=== PATIENT | female | born 1990 | race Caucasian/White ===

== ENCOUNTER 2023-05-19 08:52 | Outpatient (REF) | payer OTHER, SELFPAY ==
[2023-05-23 14:13] LABS: Age Gdln ACOG Testing Note (.); HPV Aptima Negative (Negative); IGP, Aptima HPV, rfx 16/18,45 Note (.)
== END 2023-05-19 11:00 | disposition home or self-care (01) ==
LOC: LAB 08:52
PROVIDERS: PCP Internal Medicine; Visit Provider Physician Assistant
DX: Z12.4 Encounter for screening for malignant neoplasm of cervix (principal)
CPT/HCPCS: 87624; G0145

== ENCOUNTER 2024-06-01 19:07 | Outpatient (REF) | payer OTHER, SELFPAY ==
[2024-06-06 00:07] LABS: Age Gdln ACOG Testing Note (.); HPV Aptima Negative (Negative); IGP, Aptima HPV, rfx 16/18,45 Note (.)
== END 2024-06-01 19:08 | disposition home or self-care (01) ==
LOC: LAB 19:07
PROVIDERS: PCP Internal Medicine; Visit Provider Obstetrics & Gynecology
DX: Z01.419 Encounter for gynecological examination (general) (routine) without abnormal findings (principal)
CPT/HCPCS: 87624; 88175

== ENCOUNTER 2025-06-12 20:15 | Outpatient (REF) | payer OTHER, SELFPAY ==
--- OUTSIDE RECORDS SUMMARY | 2025-06-12 16:00 | XMS_ITS | Encounter Summary ---
Author Organization [facility] Address [address] [place] [address] Care Team Providers Care Dental Surgery Doctor Name Role Phone Michael Hickman MD Primary Care Provider Reason for Visit * Reason Comments Gynecologic Exam Encounter Details Date Type Department Care Team (Late st Contact Info) Description 06/12/2025 4:00 PM EDT Office Visit [facility] [address] [place] [address] Jonah Cavanaugh DO [address] [place] [address] Social History Tobacco Use Types Packs/Day Years Used Date Smoking Tobacco: Never Smokeless Tobacco: Never Tobacco Cessation:Counseling Given: Not Answered Alcohol Use Standard Drinks/Week Comments Not Currently 1 (1 standard drink = 0.6 oz pur e alcohol) Social Connection and Isolat ion Panel [NHANES] Answer Date Recorded In a typical week, how many times do you talk on the phone with family, friends, or neighbors? Never 06/12/2025 How often do you get togethe r with friends or relatives? More than three times a week 06/12/2025 How often do you attend chur ch or hindu services? More than 4 times per year 06/12/2025 Do you belong to any clubs o r organizations such as muslim groups, unions, fraternal or athletic groups, or school groups? Yes 06/12/2025 How often do you attend meet ings of the clubs or organizations you belong to? 1 to 4 times per year 06/12/2025 Are you , , di vorced, , never , or living with a partner? 06/12/2025 [facility] of Occupat ional Health - Occupational Stress Questionnaire Answer Date Recorded Do you feel stress - tense, restless, nervous, or anxious, or unable to sleep at night because your mind is troubled all the time - these days? Not at all 06/12/2025 Comments No Sex and Gender Information Value Date Recorded Sex Assigned at Not on file Legal Sex Female 1:42 PM EDT Gender Identity Not on file Sexual Orientation Not on file Occupation Industry Job Start Date Job End Date [employer] Other Not on file Not o n file Not on file documented as of this encounter Last Filed Vital Signs Vital Sign Reading Time Taken Comments Blood Pressure 122/78 06/12/2025 4:39 PM EDT Pulse - - Temperature - - Respiratory Rate - - Oxygen Saturation - - Inhaled Oxygen Concentration - - Weight 85.6 kg (188 lb 12.8 oz) 06/12/2025 4:39 PM EDT Height - - Body Mass Index - - documented in this encounter Plan of Treatment Upcoming Encounters Date Type Department Care Team (Late st Contact Info) Description 06/21/2026 9:00 AM EDT Procedure Visit [facility] [address] [place] [address] Jonah Cavanaugh DO [address] [place] [address] documented as of this encounter Visit Diagnoses Not on filedocumented in this encounter Care Teams Dental Surgery Doctor Relationship Specialty Start Date End Date Michael Hickman MD PCP - General 05/12/23 documented as of this encounter
--- OUTSIDE RECORDS SUMMARY | 2025-06-12 20:20 | XMS_ITS | Encounter Summary ---
Author Organization [facility] Address [id number] [place] [address] Care Team Providers Care Ply Cutter Name Role Phone Michael Hickman MD Primary Care Provider [phone] Encounter Details Date Type Department Care Team (Late st Contact Info) Description 06/13/2022 Orders Only [facility] Internal Medicine/Pediatrics [address] [id number] External, Scanning Provider Social History Tobacco Use Types Packs/Day Years Used Date Smoking Tobacco: Never Smokeless Tobacco: Never Childcare Answer Date Recorded Childcare Unknown 03/09/2019 Employment Answer Date Recorded Employment Unknown 03/09/2019 Purpose - Life Answer Date Recorded Purpose and direction in life Unknown Comments Unknown Sex and Gender Information Value Date Recorded Sex Assigned at Not on file Legal Sex Female 11:38 AM EDT Gender Identity Not on file Sexual Orientation Not on file documented as of this encounter Plan of Treatment Not on file documented as of this encounter Procedures Procedure Name Priority Date/Time Associated Diagnosis Comments SARS COV 2 (COVID-19) STAT 06/12/2022 documented in this encounter Results * SARS COV 2 (COVID-19) (06/12/2022) EXTERNAL SARS COV 2 Negative Negative MANUALLY TRANSCRIBED RESULTS NASOPHARYNGEAL 06/12/2022 us Scanning Provider External MICROBIOLOGY - GENERA L ORDERABLES Final Result MANUALLY TRANSCRIBED RESULTS documented in this encounter Visit Diagnoses Not on filedocumented in this encounter Care Teams Ply Cutter Relationship Specialty Start Date End Date Michael Hickman MD [address] [place] [address], [address] [place] [address] PCP - General Pediatrics 08/06/20 documented as of this encounter
--- OUTSIDE RECORDS SUMMARY | 2025-06-12 20:20 | XMS_ITS | Encounter Summary ---
Author Organization [facility] Address [address] [place] [address] Care Team Providers Care Edge Roller Name Role Phone Michael Hickman MD Primary Care Provider [phone] Encounter Details Date Type Department Care Team (Late st Contact Info) Description 06/12/2025 Bamboo flowsheet [facility] [address] [place] [address] Jonah Cavanaugh DO [address] [place], [facility] Social History Tobacco Use Types Packs/Day Years Used Date Smoking Tobacco: Never Smokeless Tobacco: Never Alcohol Use Standard Drinks/Week Comments Not Currently [...] often do you attend chur ch or presybeterian services? More than 4 times per year 06/12/2025 Do you belong to any clubs o r organizations such as religion groups, unions, fraternal or athletic groups, or school groups? Yes 06/12/2025 How often do you attend meet ings of the clubs or organizations you belong to? 1 to 4 times per year 06/12/2025 Are you , , di vorced, , never , or living with a partner? 06/12/2025 [facility] [place] of Occupat ional Health - Occupational Stress [...] as of this encounter Plan of Treatment Upcoming Encounters Date Type Department Care Team (Late st Contact Info) Description 06/21/2026 9:00 AM EDT Procedure Visit [facility] [address] [place] [phone] Jonah Cavanaugh DO [address] [place] [address] documented as of this encounter Visit Diagnoses Not on filedocumented in this encounter Care Teams Edge Roller Relationship Specialty Start Date End Date Michael Hickman MD PCP - General 05/12/23 documented as of this encounter
--- OUTSIDE RECORDS SUMMARY | 2025-06-12 20:20 | XMS_ITS | Encounter Summary ---
Author Organization [facility] Address [address] [place] [address] Care Team Providers Care Social Services Name Role Phone Michael Hickman MD Primary Care Provider [phone] Encounter Details Date Type Department Care Team (Latest Contact Info) Description 06/11/2025 Travel Social History Tobacco Use Types Packs/Day Years [...] often do you attend chur ch or scientologist services? More than 4 times per year 06/12/2025 Do you belong to any clubs o r organizations such as mandaen groups, unions, fraternal or athletic groups, or school groups? Yes 06/12/2025 How often do you attend meet ings of the clubs or organizations you belong to? 1 to 4 times per year 06/12/2025 Are you , , di vorced, , never , or living with a partner? 06/12/2025 [facility] [place] of Occupat ional Health - Occupational Stress [...] EDT Procedure Visit [facility] [address] [phone] Jonah Cavanaugh DO [address] [place] [address] documented as of this encounter Visit Diagnoses Not on filedocumented in this encounter Care Teams Social Services Relationship Specialty Start Date End Date Michael Hickman MD PCP - General 05/12/23 documented as of this encounter
--- OUTSIDE RECORDS SUMMARY | 2025-06-12 20:20 | XMS_ITS | Encounter Summary ---
Author Organization [facility] Address [address] [place] [address] Care Team Providers Care Paver Installer Name Role Phone Michael Hickman MD Primary Care Provider [phone] Encounter Details Date Type Department Care Team (Late Contact Info) Description 05/18/2023 Abstract [facility] [address] [place] [address] Ekaterina Krause PA [address] [place], [place] [address] Social History Tobacco Use Types Packs/Day Years Used Date Smoking Tobacco: Never Assessed Comments Unknown Sex and Gender Information Value Date Recorded Sex Assigned at Not on file Legal Sex Female 1:42 PM EDT Gender Identity Not on file Sexual Orientation Not on file COVID-19 Exposure Response Date Recorded In the last 10 days, have yo u been in contact with someone who was confirmed or suspected to have Coronavirus/COVID-19? No / Unsure 05/12/2023 8:58 AM EDT documented as of this encounter Plan of Treatment Upcoming Encounters Date Type Department Care Team (Late Contact Info) Description 06/21/2026 9:00 AM EDT Procedure Visit [facility] [address] [place] [address] Jonah Cavanaugh DO [address] [place], [place] [address] documented as of this encounter Visit Diagnoses Not on filedocumented in this encounter Care Teams Paver Installer Relationship Specialty Start Date End Date Michael Hickman MD PCP - General 05/12/23 documented as of this encounter
--- OUTSIDE RECORDS SUMMARY | 2025-06-12 20:20 | XMS_ITS | Encounter Summary ---
Author Organization [facility] Address [address] [place] [address] Care Team Providers Care Supervisor Poultry Farm Name Role Phone Michael Hickman MD Primary Care Provider [phone] Encounter Details Date Type Department Care Team (Late Contact Info) Description 06/07/2024 Orders Only [facility] [address] [place] [address] Berenice Jimenez LPN [address] [place] [address] Social History Tobacco Use Types Packs/Day Years Used Date Smoking Tobacco: Never Smokeless Tobacco: Never Alcohol Use Standard Drinks/Week Comments Not Currently 1 (1 standard drink = 0.6 oz pur e alcohol) Comments No Sex and Gender Information Value Date Recorded Sex Assigned at Not on file Legal Sex Female 1:42 PM EDT Gender Identity Not on file Sexual Orientation Not on file documented as of this encounter Plan of Treatment Upcoming Encounters Date Type Department Care Team (Late Contact Info) Description 06/21/2026 9:00 AM EDT Procedure Visit [facility] [address] [place] [address] Jonah Cavanaugh DO [address] [place], [facility] documented as of this encounter Procedures Procedure Name Priority Date/Time Associated Diagnosis Comments PAP SMEAR Routine 06/01/2024 12:00 AM EDT documented in this encounter Results * Pap Smear (06/01/2024 12:00 AM EDT) Swab Cervical swab / Unknown us Jonah Mao DO LAB CYTOLOGY ORDERABLES Final Re sult EXTERNAL LAB documented in this encounter Visit Diagnoses Not on filedocumented in this encounter Care Teams Supervisor Poultry Farm Relationship Specialty Start Date End Date Michael Hickman MD PCP - General 05/12/23 documented as of this encounter
--- OUTSIDE RECORDS SUMMARY | 2025-06-12 20:20 | XMS_ITS | Clinical Summary ---
Author Organization [facility] Address [address] [place] [address] Care Team Providers Care Striper Name Role Phone Michael Hickman MD Primary Care Provider Allergies No known active allergies Medications norgestimate-eth inyl estradiol (Tri-Estarylla) 0.18/0.215/0.25 MG-35 MCG tabletIndication s: control counseling Take 1 tablet by mouth in the morning. 84 tablet 4 06/01/2024 Active Encounters Date Type Department Care Team Description 06/12/2025 4:00 PM EDT Office Visit [facility] [address] [place] [address] Jonah Cavanaugh, 06/12/2025 Bamboo flowsheet [facility] [address] [place] [address] Jonah Cavanaugh, DO 06/11/2025 Travel from Last 3 Months Family History Medical History Relation Name Comments No Known Problems Brother No Known Problems Daughter No Known Problems Father No Known Problems Mother No Known Problems Son Relation Name Status Comments Brother Daughter Father Mother Son Social History Tobacco Use Types Packs/Day Years [...] often do you attend chur ch or buddhist services? More than 4 times per year 06/12/2025 Do you belong to any clubs o r organizations such as moravian groups, unions, fraternal or athletic groups, or school groups? Yes 06/12/2025 How often do you attend meet ings of the clubs or organizations you belong to? 1 to 4 times per year 06/12/2025 Are you , , di vorced, , never , or living with a partner? 06/12/2025 [facility] of Occupat ional Health - Occupational Stress [...] Not o n file Not on file Last Filed Vital Signs Vital Sign Reading Time Taken Comments Blood Pressure 122/78 06/12/2025 4:39 PM EDT Pulse - - Temperature - - Respiratory Rate - - Oxygen Saturation - - Inhaled Oxygen Concentration - - Weight 85.6 kg (188 lb 12.8 oz) 06/12/2025 4:39 PM EDT Height - - Body Mass Index - - Plan of Treatment Upcoming Encounters Date Type Department Care Team (Late st Contact Info) Description 06/21/2026 9:00 AM EDT Procedure Visit [facility] [address] [place] [address] Jonah Cavanaugh DO [address] [place], [place] [id number] Health Maintenance Due Date Last Done Comments Influenza Vaccine (#1) 2025 2, 07/08/2020, 07/26/2019, Additional history exists Pap Smear 06/01/2027 06/01/2024 Cervical Cancer Screening 06/05/2028 HPV/Cotest 06/05/2028 06/05/2023 Procedures Procedure Name Priority Date/Time Associated Diagnosis Comments PAP SMEAR Routine 06/01/2024 12:00 AM EDT THINPREP PAP AND HPV MRNA E6/E7 W/RFL HPV 16,18/45 Routine 06/05/2023 10:26 AM EDT Well woman exam with routine gynecological exam from Last 3 Months or Most Recently Relevant to Health Maintenance Results * Pap Smear (06/01/2024 12:00 AM EDT) Swab Cervical swab / Unknown [place] DO LAB CYTOLOGY ORDERABLES Final Re sult EXTERNAL LAB * THINPREP PAP AND HPV MRNA E6/E7 W/RFL HPV 16,18/45 (06/05/2023 10:26 AM EDT) [place] DO LAB BLOOD ORDERABLES Final Resul t EXTERNAL LAB from Last 3 Months or Most Recently Relevant to Health Maintenance Insurance [employer] Care Teams Striper Relationship Specialty Start Date End Date Michael Hickman MD PCP - General 05/12/23
--- OUTSIDE RECORDS SUMMARY | 2025-06-12 20:20 | XMS_ITS | Clinical Summary ---
Author Organization [employer] tem Address [id number] [address] [place] [address] Care Team Providers Care Junior Administrative Assistant Name Role Phone Michael Hickman MD Primary Care Provider [phone] Allergies No known active allergies Medications norgestimate-eth inyl estradiol (TRI-SPRINTEC, 28, ORAL) Take 1 tablet by mouth in the morning. Active Active Problems No known active problems Social History Tobacco Use Types Packs/Day Years Used Date Smoking Tobacco: Never Smokeless Tobacco: Never Tobacco Cessation:Counseling Given: Not Answered Alcohol Use Standard Drinks/Week Comments Yes 0 (1 standard drink = 0.6 oz pur e alcohol) rarely PHQ-2 Answer Date Recorded Total Score 0 02/12/2023 Childcare Answer Date Recorded Childcare Unknown 03/09/2019 Employment Answer Date Recorded Employment Unknown 03/09/2019 Hunger Screening Answer Date Recorded Within the past 12 months we worried whether our food would run out before we got money to buy more. Never True 02/12/2023 Within the past 12 months th e food we bought just didn't last and we didn't have money to get more. Never True 02/12/2023 Purpose - Life Answer Date Recorded Purpose and direction in life Unknown Comments No Sex and Gender Information Value Date Recorded Sex Assigned at Not on file Legal Sex Female 11:38 AM EDT Gender Identity Not on file Sexual Orientation Not on file Last Filed Vital Signs Vital Sign Reading Time Taken Comments Blood Pressure 140/80 02/12/2023 11:18 AM EDT Pulse 89 02/12/2023 11:18 AM EDT Temperature 36.7 C (98.1 F) 02/12/2023 11:18 AM EDT Respiratory Rate 19 02/13/2018 7:00 PM EDT Oxygen Saturation 99% 02/12/2023 11:18 AM EDT Inhaled Oxygen Concentration - - Weight 79.8 kg (176 lb) 02/12/2023 11:18 AM EDT Height 172.7 cm (5' 8 ) 02/12/2023 11:18 AM EDT Body Mass Index 26.76 02/12/2023 11:18 AM EDT Plan of Treatment Health Maintenance Due Date Last Done Comments Tobacco Screening 2000 Pap Smear 2009 DTaP,Tdap and Td Vaccines (6 - Td or Tdap) 01/22/2016 01/21/2006, 01/18/1990, 04/16/1989, Additional history exists Adult BMI Screening 02/13/2024 02/12/2023 Depression Screening 02/13/2024 02/12/2023 COVID-19 Vaccine (2023-2 5 season) 2024 12/21/2020, 11/21/2020 Influenza Vaccine 05/29/2025 07/04/2022, , 07/26/2019, Additional history exists Medical Devices Not on file Insurance [employer] Care Teams Junior Administrative Assistant Relationship Specialty Start Date End Date Michael Hickman MD [address] [place] [address], [address] [place] [address] PCP - General Pediatrics 08/06/20
--- OUTSIDE RECORDS SUMMARY | 2025-06-12 20:21 | XMS_ITS | CCD ---
Author Organization [facility] Care Team Providers Care Division Merchandise Manager Name Role Phone DUDLEY ZHU Unavailable Unavailable DUDLEY ZHU Unavailable Unavailable PHOENIX GOMEZ Unavailable Unavailable Joseph Cheung Unavailable Unavailable Reyes Manriquez Unavailable Unavailable DUDLEY ZHU Unavailable Unavailable DUDLEY ZHU Unavailable Unavailable PHOENIX GOMEZ Unavailable Unavailable PHOENIX GOMEZ Unavailable Unavailable DUDLEY ZHU Unavailable Unavailable DUDLEY ZHU Unavailable Unavailable PHOENIX GOMEZ Unavailable Unavailable Kenyon Brody Unavailable Unavailable Erica Ramírez Unavailable Nydia Perez Unavailable DR CARL MARSHALL Admitting Unavailable ROLANDO, DR HENRY Attending Unavailable DR CARL MARSHALL Consulting Unavailable AUNG CAVANAUGH Attending Unavailable Phoenix Gomez MD Primary Care Provider Phoenix Gomez MD Primary Care Provider [phone] Medications Current Medications Medication Drug Class(es) Dates Sig (Normalized) Sig (Original) amoxicillin 875 mg oral tablet (1 source) Penicillin-class Antibacterial Start: 02-20-2022 take 1 tablet by mouth every twelve hours Amoxicillin 875 MG 1 tablet Orally every 12 hrs for 7 days January, Active Ethinyl Estradiol / norgestimate (7 sources) Progestin, Estrogen Start: 06-01-2024 take 1 tablet by mouth in the morning norgestimate-ethi nyl estradiol (Tri-Estarylla) 0.18/0.215/0.25 MG-35 MCG tablet Indications: control counseling Take 1 tablet by mouth in the morning. 84 tablet 4 06/01/2024 Active Start: 04-06-2024 End: 06-01-2024 Tri-Estarylla 0.18/0.215/0.2 5 MG-35 MCG tablet Indications: control counseling TAKE 1 TABLET EVERY MORNING 84 tablet 04/06/2024 06/01/2024 Discontinued (Reorder) Start: 04-06-2024 Tri-Estarylla 0.18/0.215/0.25 MG-35 MCG tablet Indications: control counseling TAKE 1 TABLET EVERY MORNING 84 tablet 04/06/2024 Active methylPREDNISolone 4 mg oral tablet (1 source) Corticosteroid Start: 02-20-2022 methylPREDNISo lone 4 MG as directed Orally Once a day for 6 days January, Active Tri-Sprintec (2 sources) Tri-Sprintec Act leigh Problems Active Problems Problem Classification Problem Date Documented Date Episodic/Chronic Immunizations and screening for infectious disease (3 sources) Contact with and (suspected) exposure to other viral communicable diseases; Translations: [Encounter for screening for human papillomavirus (HPV)] Onset: 05-14-2022 Resolved: 06-12-2022 Episodic Other screening for suspected conditions (not mental disorders or infectious disease) (4 sources) Encounter for screening for malignant neoplasm of cervix; Translations: [ENC SCREENING MALIG NEOPLASM CERV] Onset: 05-13-2022 Episodic Other upper respiratory infections (4 sources) Sore throat symptom; Translations: [Acute pharyngitis, unspecified] Onset: 02-20-2022 Resolved: 06-12-2022 Episodic Past or Other Problems Problem Classification Problem Date Documented Da te Episodic/Chronic Contraceptive and procreative management (2 sources) Patient encounter status; Translations: [Encounter for other general counseling and advice on contraception] 06-01-2024 Episodic Otitis media and related conditions (1 source) Otitis media, unspecified, left ear Onset: 02-20-2022 Resolved: 02-20-2022 Episodic Results Test Name Value Interpretation Reference Range Facility IGP,APTIMA HPV,AGE GDLNon AGE GDLN ACOG TESTING Note . [facility] Comment on above: TESTS RESULT FLAG UN ITS REF RANGE LAB Clinician Provided Cytology Information Source.............Cervix;Endocervix No. of containers..01 ThinPrep Vial Age Matt SCALES Karrie... 28 FLAG LEGEND: L-Low Normal,H-High Normal,LL-Alert Low,HH-Alert High <-Panic Low,>-Panic High,A-Abnormal,AA-Critical Abnormal Performed at: 01 =[address] [address] Lorena Baires MD, HPV APTIMA Negative Negative [facility] Comment on above: This nucleic acid am plification test detects fourteen high- risk HPV types (16,18,31,33,35,39,45,51,52,56,58,59,66,68) without differentiation. Performed at: =[address] [id number] Skate Maker: Lorena Biares MD, Phone: [phone] Performed at: [address] [id number] Skate Maker: Lorena Baires MD, Phone: [phone] IGP, APTIMA HPV, RFX 16/18,45 Note . [facility] Comment on above: TESTS RESULT FLAG UN ITS REF RANGE LAB DIAGNOSIS: 02 NEGATIVE FOR INTRAEPITHELIAL LESION OR MALIGNANCY. Specimen adequacy: 02 Satisfactory for evaluation. Endocervical and/or squamous metaplastic cells (endocervical component) are present. Performed by: 02 Manoj Crockett, Senior Qualitative Researcher (ASCP) . 02 Note: Note 02 The Pap smear is a screening test designed to aid in the detection of premalignant and malignant conditions of the uterine cervix. It is not a diagnostic procedure and should not be used as the sole means of detecting cervical cancer. Both false-positive and false-negative reports do occur. Test Methodology: Note 02 This liquid based ThinPrep(R) pap test was screened with the use of an image guided system. HPV Genotype Reflex Note 02 Criteria not met, HPV Genotype not performed. FLAG LEGEND: L-Low Normal,H-High Normal,LL-Alert Low,HH-Alert High <-Panic Low,>-Panic High,A-Abnormal,AA-Critical Abnormal Performed at: [address] [address] Lorena Baires MD, BRUSH-SPATULA CERVIX ENDOCERVIX [facility] [place][note 2] SARS-CoV-2 (COVID-19) RNA NA A+probe Ql (Resp)on 06-12-2022 SARS-CoV-2 (COVID-19) RNA LIZABETH+probe Ql (Unsp spec) Negative [facility] Other PAP ACOG PANEL 2: 30 to 65on 05-17-[address] [facility] Comment on above: Result Comment: Perf ormed at: WB Performed By: #### 4 [id number] #### [facility] [address] [place] [address] Dr. Almaz Fam Age Gdln ACOG Testing [address] [facility] Comment on above: Performed By: #### 4 [id number] #### [facility] [address] [address] [address] Almaz Fam DIAGNOSIS: Comment Normal [facility] Comment on above: Result Comment: NEGA TIVE FOR INTRAEPITHELIAL LESION OR MALIGNANCY. Performed at: WB Performed By: #### 4 [id number] #### [facility] [address] [address] [address] Almaz Fam HPV Aptima Negative Normal Negative [facility] Comment on above: Result Comment: This nucleic acid amplification test detects fourteen high-risk HPV types (16,18,31,33,35,39,45,51,52,56,58,59,66,68) without differentiation. Performed at: =G Performed By: #### 4 [id number] #### [facility] [address] [place] [address] Dr. Almaz Fam Methodology: Comment Normal [facility] Comment on above: Result Comment: This liquid based ThinPrep(R) pap test was screened with the use of an image guided system. Performed at: WB Performed By: #### 4 [id number] #### [facility] [address] [place] [address] Dr. Almaz Fam Note: Comment Normal [facility] Comment on above: Result Comment: The Pap smear is a screening test designed to aid in the detection of premalignant and malignant conditions of the uterine cervix. It is not a diagnostic procedure and should not be used as the sole means of detecting cervical cancer. Both false-positive and false-negative reports do occur. . Performed at: WB Performed By: #### 4 [id number] #### [facility] [address] [place] [address] Dr. Almaz Fam Performed by: Comment Normal [facility] Comment on above: Result Comment: Jaylen Alvarado, Senior Qualitative Researcher (ASCP) Performed at: WB Performed By: #### 4 [id number] #### [facility] [address] [place] [address] Dr. Almaz Fam Specimen adequacy: Comment Normal [facility] Comment on above: Result Comment: Sati sfactory for evaluation. Endocervical and/or squamous metaplastic cells (endocervical component) are present. Performed at: WB Performed By: #### 4 [id number] #### [facility] [address] [place] [address] Dr. Almaz Fam Quick Strepon 02-20-2022 S. pyogenes Org specific cx Ql (Throat) Negative [facility] ([employer] Other Quick Strep [facility] ([employer] Other History and Physicalon 04-16 History and Physical [id number]#1.00OT[facility] Operative Report - Surgeon/P hysicianon 04-16-2018 Operative Report - Surgeon/Physician [id number]#1.00OT[facility] Provider Orderson 04-16-2018 Protein [id number]#[address] [place] [address] Coding Summaryon 03-22-2018 Coding Summary CODING DATE: 018 [facility] STATUS: Home PAYOR: Commercial Insurance APC DESCRIPTION 5073 Level 3 Excision/ Biopsy/ Incision and Drainage ADMIT DX: REASON FOR VISIT DX: N90.9 Noninflammatory disorder of vulva and perineum, unspecified FINAL DX: 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 However, the narrative phrase printed from the coding software may appear abbreviated, or result in slightly different terminology. Revised Coded By: Chuyita Zapata Revised Date Saved: 03/22/2018 12:34 pm [facility] MAGR Intraoperative Recordon 03-22-2018 MAGR Intraoperative Record MAGR Intra-Op Record Summary Primary Physician: Dudley Zhu DO Finalized Date/Time: 03/22/18 08:11:36 Pt. Name: MEGAN VASQUEZ Андрей CabelloB./Sex: 1990 FEMALE Med Rec #: [id number] Physician: Dudley Zhu DO Financial #: [id number] Pt. Type: D Room/Bed: / Admit/Disch: 03/16/18 08:30:13 - 03/16/18 15:30:00 Institution: Case Times MAGR Entry 1 Patient In Room Time 03/16/18 12:20:00 Out Room Time 03/16/18 13:39:00 Anesthesia Start Time 03/16/18 12:20:00 Stop Time 03/16/18 13:39:00 Surgery Start Time 03/16/18 12:45:00 Stop Time 03/16/18 13:29:00 Last Modified By: Joan Cruz 03/16/18 13:45:02 Case Attendance MAGR Entry 1 Entry 2 Entry 3 Case Attendee Dudley Zhu DO, David DO Cartier, Cynthia M Role Performed Surgeon - Primary Anesthesiologist of General Assignment Reporter Record Time In 03/16/18 12:20:00 03/16/18 12:20:00 03/16/18 12:20:00 Time Out 03/16/18 13:39:00 03/16/18 13:39:00 03/16/18 13:39:00 Procedure Excision Cyst(Right) Excision Cyst(Right) Excision Cyst(Right) Last Modified By: Joan Cruz Cynthia M Cartier, Cynthia M 03/16/18 13:45:07 03/16/18 13:45:07 03/16/18 13:45:07 Entry 4 Entry 5 Case Attendee Helena Tuttle [employer] [place] CST Role Performed Political Reporter Scrub Personnel Time In 03/16/18 12:20:00 03/16/18 12:20:00 Time Out 03/16/18 13:39:00 03/16/18 13:39:00 Procedure Excision Cyst(Right) Excision Cyst(Right) Last Modified By: Joan Cruz Cynthia M 03/16/18 13:45:07 03/16/18 13:45:07 Surgical Procedures MAGR Pre-Care Text: A.20 Verifies operative procedure, surgical site, and laterality Im.150 Develops individualized plan of care Entry 1 Procedure Excision Cyst Primary Procedure Yes Primary Surgeon Dudley Zhu DO Modifiers Right Surgeon Comment E/O RIGHT VULVAR MASS Start 03/16/18 12:45:00 Stop 03/16/18 13:29:00 Anesthesia Type General Surgical Service General Wound Class Clean-Contaminated Last Modified By: Joan Cruz 03/16/18 13:45:21 Post-Care Text: O.730 The patient's care is consistent with the individualized perioperative plan of care General Case Data MAGR Pre-Care Text: A.350.1 Classifies surgical wound Entry 1 Case Information OR MAGR OR 02 Case Level Level 4 Wound Class Clean-Contaminated Specialty Gynecology ASA Class 2 Diagnosis Preop Diagnosis RIGHT VULVAR MASS Postop Same As Preop Yes Postop Diagnosis RIGHT VULVAR MASS Last Modified By: Joan Cruz 03/16/18 12:58:28 Post-Care Text: O.760 Patient receives consistent and comparable care regardless of the setting Time Out MAGR Entry 1 Time out date/time 03/16/18 12:30:00 All team members Yes have introduced themselves by name and role Surgeon, Yes Surgeon reviews Yes anesthesia, nurse critical or confirm patient, unexpected steps, site, procedure operative duration, anticipated blood loss Anesthesia team Yes Nursing team Yes reviews any reviews sterility patient-specific (including concerns indicator results) and equipment issues/concerns Antibiotic Antibiotic N/A prophylaxis given within the last 60 minutes Is essential N/A imaging displayed? Last Modified By: Joan Cruz 03/16/18 13:04:26 Patient Positioning MAGR Pre-Care Text: A.280 Identifies baseline musculoskeletal status Im.40 Positions the patient Im.80 Applies safety devices Entry 1 Procedure Excision Cyst(Right) Body Position Low Lithotomy Left Arm Position Extended on padded arm Right Arm Position Extended on padded arm board board Left Leg Position Secured in Stirrup Right Leg Position Secured in Stirrup Feet Uncrossed? Yes Press Points Checked Yes Positioning Device Pillow Outcome Met (O.80) Yes Last Modified By: Joan Cruz 03/16/18 13:05:29 Post-Care Text: E.290 Evaluates musculoskeletal status O.80 Patient is free from signs and symptoms of injury related to positioning Skin Prep MAGR Pre-Care Text: A.30 Verifies allergies Im.270 Performs skin preparation Im.270.1 Implements protective measures to prevent skin and tissue injury due to chemical sources Entry 1 Skin Prep Syntegrity Prep Agents (Im.270) Povidone-Iodine Prep By Joan Cruz Prep Area (Im.270) Retroperineal and Skin Prep Agent Dry Yes vaginal Without Pooling Hair Removal Syntegrity Hair Removal Methods No hair removal performed Outcome Met (O.100) Yes Last Modified By: oJan Cruz 03/16/18 12:59:41 Post-Care Text: E.10 Evaluates for signs and symptoms of physical injury to skin and tissue O.100 Patient is free from signs and symptoms of chemical injury Counts Verification MAGR Pre-Care Text: A.20 Verifies operative procedure, surgical site, and laterality A.20.2 Assesses the risk for unintended retained foreign body Im.20 Performs required counts Entry 1 Procedure Excision Cyst(Right) Counts Verification Initial Counts Items included in Sponges, Sharps Initial Counts Manual the Initial Count Method Initial Counts Joan Cruz, Initial Count Time 03/16/18 12:30:00 Performed By Lucy Malik Counts Verification Final Counts Items Included in Sponges, Sharps Final Count Method Manual Final Count Final Count Status Correct Final Counts Joan Cruz, Performed By Lucy Malik Surgeon notified of Yes final counts status Outcome Met (O.20) Yes Last Modified By: Joan Cruz 03/16/18 13:01:22 Post-Care Text: E.50 Evaluates results of the surgical count O.20 Patient is free from unintended retained foreign objects Patient Care Devices MAGR Pre-Care Text: A.200 Assesses risk for normothermia regulation A.40 Verifies presence of prosthetics or corrective devices Im.280 Implements thermoregulation measures Im.60 Uses supplies and equipment within safe parameters Entry 1 Entry 2 Equipment Type FLOWTRON FOOT CUFF REG BLANKET UPPER BODY OR Serial ?# [id number] Equipment Setting FACTORY SETTING 43C Last Modified By: Joan Cruz Cynthia M 03/16/18 13:06:18 03/16/18 13:06:18 Post-Care Text: E.10 Evaluates signs and symptoms of physical injury to skin and tissue O.700 Patient is free from signs and symptoms of injury caused by extraneous objects Cautery MAGR Pre-Care Text: A.240 Assesses baseline skin condition A.40 Verifies presence of prosthetics or corrective devices Im.50 Implements protective measures to prevent injury due to electrical sources Entry 1 ESU Type Electrosurgical Unit Identification [id number] Number ESU Settings Syntegrity Cut Setting 30 Coag Setting 30 Grounding Pad Details Grounding Pad Yes Verified By Joan Cruz Needed? Grounding Pad Site Table Grounding Pad Grounding Pad Site Bilateral Detail Within Expiration Yes Date? Outcome Met (O.10) Yes Last Modified By: Joan Cruz 03/16/18 13:06:33 Post-Care Text: E.10 Evaluates for signs and symptoms of physical injury to skin and tissue O.10 Patient is free from signs and symptoms of injury related to thermal sources Cultures and Specimens MAGR Pre-Care Text: A.350 Assesses susceptibility for infection A.10 Confirms patient identity Im.320 Manages culture specimen collection Im.330 Manages specimen handling and disposition Entry 1 Cultures Ordered No Specimens Ordered Yes Outcome Met (O.40) Yes Last Modified By: Joan Cruz 03/16/18 13:06:40 Post-Care Text: E.40 Evaluates correct processes have been performed for specimen handling and disposition O.40 Patient's specimen(s) is managed in the appropriate manner Medication Administration MAGR Pre-Care Text: A.210 Identifies physiological status Im.220 Administers prescribed medications Entry 1 Time Administered 03/16/18 13:10:00 Medication LIDOCAINE 1% WITH EPI 1:100,000 Route of Admin SubQ Volume 9 mL By Dudley Zhu DO Outcome Met (O.130) Yes Last Modified By: Joan Cruz 03/22/18 08:11:31 Post-Care Text: E.20 Evaluates response to medications O.130 Patient receives appropriately administered medication(s) Dressing/Packing MAGR Pre-Care Text: A.350 Assesses susceptibility for infection Im.290 Administer care to wound sites Entry 1 Skin Prep Agent No Removed Prior to Dressing? Dressing Item Details Miscellaneous Sanitary Pad (Im.290) Outcome Met Yes Last Modified By: Joan Cruz 03/16/18 13:26:01 Post-Care Text: E.200 Evaluates progress of wound healing O.200 Patient's wound perfusion is consistent with or improved from baseline levels Departure from OR MAGR Entry 1 Present on Depart Oxygen Via Stretcher Post-op Destination PACU Skin DFO Condition Dry Description Condition Intact Description Condition Warm Description Report Given To Candice Howard RN Airway Maintenance Patient Status Stable Oxygen in Use? Yes Airway Device Simple mask Flow Rate 15 L/min Last Modified By: Joan Cruz 03/16/18 13:07:19 Case Comments Finalized By: Joan Cruz Document Signatures Signed By: Joan Cruz 03/16/18 13:48 Joan Cruz 03/22/18 08:11 Unfinalized History Date/Time Username Reason for Unfinalizing Freetext Reason for Unfinalizing 03/22/18 08:10 MHCCARTIER Correct Documentation [facility] Lab - AP Resultson 8 Lab - AP Results [id number]#1.00OT[facility] Pathology Sendout Teston Pathology Send Out. See Report [facility] Comment on above: Order Comment: RIGHT LABIAL MAJORAL MASS Performed By: #### 2 [id number] ####[facility] (DEFAULT)[address] [place] [address] Intraoperative Noteon 2017 Intraoperative Note [id number]#1.00OT[facility] Consent Formson 03-17-2018 Consent Forms [id number]#1.00OT[facility] Telemetry Stripson 8 Telemetry Strips [id number]#1.00OT[facility] Anesthesia Noteon 03-16-2018 Anesthesia Note Patient: JESUS VASQUEZ : 27 years Sex: FEMALE : [birth year]Associated Diagnoses: NoneAuthor: Kenyon Brodyostoperative InformationPost Operative Note: Post Anesthesia Care Unit.Review / ManagementCondition: Stable.AssessmentAnesthetic outcomeNo anesthetic complications noted.PlanTransfer/ Discharge: Patient can be discharged from PACU when criteria met.Condition good.[Electronically Signed on: 03/16/2018 14:02 EDT] Kenyon Brody DO[Verified on: 03/16/2018 14:02 EDT] Kenyon Brody DO [facility] Anesthesia Note Patient: JESUS VASQUEZ : 27 years Sex: FEMALE : [birth year]Associated Diagnoses: NoneAuthor: Kenyon Brodyreoperative InformationAnesthesia history: Patient history: No difficult intubation, No malignant hyperthermia. Family history: No malignant hyperthermia, No prior anesthesia problems.Review of SystemsConstitutionalEyeEar /Nose/Mouth/ThroatRespirato ry: No shortness of breath, No cough.Cardiovascular: No chest pain.Gastrointestinal: No heartburn.Neurologic: Alert and oriented X4.Health StatusAllergies:Allergic Reactions (All)No known allergiesCurrent medications:Home Medications (3) Activebisoprolol 5 mg oral tablet 5 mg = 1 tab(s), PO, DailyNorvasc 5 mg oral tablet 5 mg = 1 tab(s), PO, DailyTri-Sprintec oral tablet 1 tab(s), PO, DailyProblem list (past medical history):All ProblemsHypertension / SNOMED CT 5014869016 / ConfirmedVulvar mass / SNOMED CT 377751370 / ConfirmedHistoriesFamily History:No family history items have been selected or recorded.Procedure history: delivery ([id number]).History of tonsillectomy (4879052859).Social History Alcohol Assessment Use: Current. 1-2 times per month Tobacco Assessment Never (less than 100 in lifetime) Tobacco Use:..Social & Psychosocial RszbuhGmtcuwg92/24/2018 Alcohol Use: Current Frequency: 1-2 times per rfbppQmeiaii30/24/2018 Smoking tobacco use: Never (less than 100 in l.Physical ExaminationVS/MeasurementsM easurements from flowsheet : Qkqqvaiobunp37/19/18 08:45 EDT Height 170.180 cm Height/Length Dosing 170.180 cm Weight 85.600 kg Weight Dosing 85.600 kg Body Mass Index 29.560 kg/m2,Vital Signs (last 24 hrs) Last ChartedHeart Rate Peripheral H105 bpm (MAR 16 08:45)Resp Rate 18 br/min (MAR 16 08:45)SBP 139 mmHg (MAR 16 08:45)DBP 87 mmHg (MAR 16 08:45)SpO2 100 % (MAR 16 08:45)Weight 85.600 kg (MAR 16 08:45)Height 170.18 cm (MAR 16 08:45)Pain assessment: Self-reports no pain.General: Alert and oriented, No acute distress.Airway: Mallampati classification: I (soft palate, fauces, uvula, pillars visible). Temporomandibular joint mobility: Good. Mouth: Within normal limits. Neck: Non-tender, Full range of motion.Respiratory: Lungs are clear to auscultation.Cardiovascular : Normal rate, Regular rhythm.Neurologic: Alert, Oriented.Review / ManagementLaboratory ResultsPlanAmerican Society of Anesthesiologists#(ASA) physical status classification: Class II.Anesthetic Preoperative PlanAnesthesia: General.. Anesthetic plan, risks, benefits, and alternatives discussed with the patient and/or family. Risks discussed: nausea, vomiting, sore throat, serious complications. Patient verbalized understanding. Family/Guardian present. Informed consent was given. Consent was signed by the patient.[Electronically Signed on: 03/16/2018 12:40 EDT] Kenyon Brody DO[Verified on: 03/16/2018 12:40 EDT] Kenyon Brody DO Normal [facility] Inpatient Clinical Summaryon 03-16-2018 Inpatient Clinical Summary [facility] SURGERYClinical Discharge SummaryPERSON INFORMATIONName MEGAN VASQUEZ Age 27 Years 88Sex FEMALE Language Scottish PCP Sapphire GOMEZ Status Med Service Ambulatory SurgeryMRN [id number] Acct# Arrival 03/16/18 08:30:13Visit Reason SURGERY Acuity [place] 021 03:56Address:[facility] [address] [facility] [address]Ckgtqfw:PROVIDER INFORMATIONVITALS INFORMATIONVital Sign Triage LatestTemp OralTemp TemporalTemp IntravascularTemp AxillaryTemp Rohiua15 Sat 100 % 97 %Respiratory Rate 18 br/min 18 br/minPeripheral Pulse Rate 105 bpm 101 bpmApical Heart RateBlood Pressure 135 mmHg / 81 mmHg 141 mmHg / 88 mmHgComment:MEDICAL INFORMATIONAllergy Info:No known allergiesPrescriptions Given:Prescription Displayacetaminophen-hydroc odone ([place] 5 mg-325 mg oral tablet) 1 tab(s), PO, q6hr, Instructions: may take 1 or 2 tablets not to exceed 8 tablets/day, PRN: for pain, # 15 tab(s), 0 Refill(s), 03/21/18ibuprofen (ibuprofen 600 mg oral tablet) 1 tab(s) ( 600 mg ), PO, q6hr, PRN: as needed for pain, # 60 tab(s), 0 Refill(s), 03/27/18Home Meds Displaybisoprolol (bisoprolol 5 mg oral tablet) 1 tab(s) ( 5 mg ), PO, Daily, # 30 tab(s), 0 Refill(s)Medication List:Fill New Prescriptions:acetaminophen -hydrocodone ([place] 5 mg-325 mg oral tablet) 1 tab(s) Oral Every 6 hours as needed for for pain may take 1 or 2 tabletsnot to exceed 8 tablets/dayibuprofen (ibuprofen 600 mg oral tablet) 600 mg Oral Every 6 hours as needed for as needed for painContinue These Medications:amLODIPine (Norvasc 5 mg oral tablet) 5 mg Oral every daybisoprolol (bisoprolol 5 mg oral tablet) 5 mg Oral every dayethinyl estradiol-norgestimate (Tri-Sprintec oral tablet) 1 tab(s) Oral every dayComment:Lab and Radiology ResultsLaboratory or Other Results This Visit (last charted value for your 03/16/2018 visit) Chemistry 03/16/2018 8:47 AM U Preg: NegativeDIET & ACTIVITYPatient Activity Level:As ToleratedPatient Diet:RegularPatient Activity Restrictions:No driving, No Sexual Activity, Other: ice pack to perineum 10 minutes on , 10 minutes off while awake if useful/needed for pain managementDISCHARGE INFORMATIONDischarge Disposition:Discharge Location:DEPART REASON INCOMPLETE INFORMATIONPATIENT EDUCATION INFORMATIONInstructions:Fol low up:With: Address: When:Dudley Zhu [address] [place] [address] [facility] () In 2 weeks 03/30/1835DZXGFVBNL3:Vulvar massComment:PHYS DOC NOTES Normal [facility] Inpatient Patient Summaryon 03-16-2018 [place]patient [place] [address] patient Discharge InstructionsName: MEGAN VASQUEZ LDOB: [birth year] Address: [address] [place] [address] Care Provider:Name: PHOENIX GOMEZPhone: after you are discharged if you find you have any questions, please, call [phone] ext [phone] to speak to a nurse.Discharge Diagnosis: 1:Vulvar massIf you received any narcotics, sedation, or any other medication that causes drowsiness for the next 24 hours, unless otherwise directed:? Do not drive a car.? Do not operate machinery such as power tools, lawn mowers, drills, sewing machines, or stoves? Avoid alcoholic beverages and drugs for allergies, nerves, or sleep? Do not make important personal or business decisions or sign any legal documentsOhiohealth [facility]in [facility] would like to thank you for allowing us to assist you with your healthcare needs. The following includes patient education materials and information regarding your injury/illness.MEGAN VASQUEZ has been given the following list of follow-up instructions, prescriptions, and patient education materials:Follow-up InstructionsWith: Address: When:Dudley Zhu [address] [place] [address] [facility] (gAuto In 2 weeks 03/30/18MedicationsDuring the course of your visit, your medication list was updated with the most current information. The details of those changes are reflected below:New MedicationsPrinted Prescriptionsacetaminophen- hydrocodone ([place] 5 mg-325 mg oral tablet) 1 tab(s) Oral Every 6 hours as needed for pain. may take 1 or 2 tabletsnot to exceed 8 tablets/day. Refills: 0.ibuprofen (ibuprofen 600 mg oral tablet) 1 tab(s) Oral Every 6 hours as needed as needed for pain. Refills: 0.Medications to Continue That Have Not ChangedOther MedicationsamLODIPine (Norvasc 5 mg oral tablet) 1 tab(s) Oral every day.bisoprolol (bisoprolol 5 mg oral tablet) 1 tab(s) Oral every day.ethinyl estradiol-norgestimate (Tri-Sprintec oral tablet) 1 tab(s) Oral every day.It is important to always keep an active list of medications available so that you can share with other providers and manage your medications appropriately. As an additional courtesy, we are also providing you with your final active medications list that you can keep with you.acetaminophen-hydrocodo ne ([place] 5 mg-325 mg oral tablet) 1 tab(s) Oral Every 6 hours as needed for pain. may take 1 or 2 tabletsnot to exceed 8 tablets/day. Refills: 0.amLODIPine (Norvasc 5 mg oral tablet) 1 tab(s) Oral every day.bisoprolol (bisoprolol 5 mg oral tablet) 1 tab(s) Oral every day.ethinyl estradiol-norgestimate (Tri-Sprintec oral tablet) 1 tab(s) Oral every day.ibuprofen (ibuprofen 600 mg oral tablet) 1 tab(s) Oral Every 6 hours as needed as needed for pain. Refills: 0.Take only the medications listed above. Contact your doctor prior to taking any medications not on this list.Diet & ActivityPatient Activity Level: As ToleratedPatient Diet: RegularPatient Activity Restrictions: No driving, No Sexual Activity, Other: ice pack to perineum 10 minutes on , 10 minutes off while awake if useful/needed for pain managementComment:Patient education materials, if any, will display belowViruses or BacteriaWhat?s got you sick?Antibiotics only treat bacterial infections. Viral illnesses cannot be treated with antibiotics. When an antibiotic is not prescribed, ask your healthcare professional for tips on how to relieve symptoms and feel better. Usual CauseIllness Viruses Bacteria Antibiotic NeededCold/Runny Nose NOBronchitis/Chest Cold (in otherwise healthy children and adults) NOWhooping Cough YesFlu NOStrep Throat YesSore Throat (except strep) NOFluid in the middle ear (otitis media with effusion) NOUrinary Tract Infection YesAntibiotics Aren?t Always the Answerwww.cdc.gov/getsmart GETSMARTKnow When Antibiotics Deuce. Department of Health and Human ServicesCenters for Disease Control and Prevention May 2014 [facility] MAGR PACU Recordon 8 MAGR PACU Record MAGR PACU Record [facility] Primary Physician: Dudley Zhu DO Finalized Date/Time: 03/16/18 14:32:18 Pt. Name: MEGAN VASQUEZ/Sex: 1990 FEMALE Med Rec #: [id number] Physician: Dudley Zhu DO Financial #: [id number] Pt. Type: D Room/Bed: / Admit/Disch: 03/16/18 08:30:13 - Institution: PACU Case Times MAGR Entry 1 In PACU I 03/16/18 13:40:00 Ready for PACU I 03/16/18 14:10:00 Discharge Discharge from PACU 03/16/18 14:10:00 I Last Modified By: Candice Howard RN 03/16/18 14:32:13 General Comments: Awake, aware, vital signs stable on room air. Respiration deep and regular. ECG shows borderline sinus tachycardia. Lizzie pad dry. denying discomfort. Discharge to nursing unit per Dr Brody using discharge criteria. Finalized By: Candice Howard RN Document Signatures Signed By: Candice Howard RN 03/16/18 14:32 [facility] MAGR Postoperative Recordon 03-16-2018 MAGR Postoperative Record MAGR Phase II Record Summary Primary Physician: Dudley Zhu DO Finalized Date/Time: 03/16/18 15:37:28 Pt. Name: NICOLE VASQUEZBRUNO June./Sex: 1990 FEMALE Med Rec #: [id number] Physician: Dudley Zhu DO Financial #: [id number] Pt. Type: D Room/Bed: / Admit/Disch: 03/16/18 08:30:13 - Institution: Phase II Case Times MAGR Pre-Care Text: Patient is free from s/s of injury. Patient remains free from compromised physical state related to surgery or anesthesia. Patient comfort maintained. Patient/family verbalize understanding of discharge instructions. Entry 1 In PACU II 03/16/18 14:15:00 Discharge from PACU 03/16/18 15:30:00 II Last Modified By: Marci Balderas 03/16/18 15:37:17 Post-Care Text: The patient remains free from s/s of injury. Patient's vital signs stable, circulation maintained, return to preop mental and physical status, opsite/dressing intact, minimal or absent nausea and vomiting, tolerates po intake. Patient verbalizes adequate pain control. Patient/family express understanding of discharge instructions. Finalized By: Marci Balderas Document Signatures Signed By: Marci Balderas 03/16/18 15:37 Normal [facility] Operative Report - Surgeon/P brett 03-16-2018 Operative Report - Surgeon/Physician DATE OF PROCEDURE: 03/16/2018PREOPERATIVE DIAGNOSIS: Right vulvar mass.POSTOPERATIVE DIAGNOSIS: Right vulvar mass. Pending pathology.PROCEDURE: Exploration and excision of right vulvar mass.SURGEON: Dudley Zhu DOANESTHESIA: Dr. An PlummerCOMPLICATIONS: None.ESTIMATED BLOOD LOSS: 50 ccURINE OUTPUT: The patient emptied bladder just prior to the procedure.FLUIDS: Approximately 500 cc of Lactated Ringers.FINDINGS: Indurated 6.5 x 1.5 cm right vulvar mass, after opened patient,lipomatous mass noted with induration.PROCEDURE: The risks, benefits, indications and alternatives of theprocedure were reviewed with the patient and informed consent was obtained.The patient was taken to the operating room with IV running. She was givengeneral anesthesia and then placed into the dorsolithotomy position and wasprepped and draped in the normal sterile fashion. Next, the right vulva waspalpated noting the indurated mass beginning just above the clitoral shepard onthe right vulvar region to the base of the mons pubis. An incision was madefrom the base of the mons pubis down the right side of the vulva overlyingthe vulvar mass. Then the vulvar mass was palpated appearing to belipomatous in nature and it was grasped with Allis's and dissected slowly andit came out in pieces. The knife was used to dissect the vulvar lipomatousmass out in several sections as it was breaking apart. After the main bodyof the mass was removed, several finger-like projections of lipomatousinduration were then grasped with the Allis clamps and excised with thescalpel. The right vulvar region was then palpated under the skin noting theinduration of the lipomatous mass and grasping each of the finger-likeportions of the mass that extended beyond the main body of the mass. Afterthis was completely removed, the right vulvar region was suture ligated withO Vicryl in three layers one deep and one medium height and the skin wasclosed subcuticularly with 3-0 Vicryl and curved needle in a subcuticularmanner. Although on the surgery, several vessels were clampedwith hemostats and suture ligated with O Vicryl. Good hemostasis was noted.All instruments were removed. Lidocaine 1% with epinephrine was injectedinto the incision upon closure. Sponge, lap, needle and instrument countswere correct x2. The patient was brought to the recovery room awake and instable condition.KAYLEY Melendrez #: [id number]: 03/16/2018T: 03/16/2018[Electronically Signed on: 03/17/2018 18:15 EDT] Dudley Zhu DO, D.O.[Verified on: 03/17/2018 18:15 EDT] Dudley Zhu DO, D.O.[Transcribed on: 03/16/2018 14:51 EDT]GDU [facility] Test Urine 1on U Preg Negative [facility] Comment on above: Performed By: #### 7 [id number] ####[facility] (DEFAULT)[address] [place] [id number] U Preg Internal Control Pass [facility] Comment on above: Performed By: #### 7 [id number], [id number] ####[facility] (DEFAULT)[address] [place] [id number] Progress Note - Nurseon 02-26 Progress Note - Nurse Spoke with pt and informed her to be here at 9am and NPO after MN.[Electronically Signed on: 03/15/2018 13:06 EDT] Emely Taylor RN[Verified on: 03/15/2018 13:06 EDT] Emely Taylor RN [facility] Provider Orderson 02-17-2018 Protein [id number] [facility] Coding Summaryon 01-28-2018 Coding Summary CODING DATE: 018 [facility] STATUS: Home PAYOR: Commercial Insurance ADMIT DX: REASON FOR VISIT DX: Z53.09 Procedure and treatment not carried out because of other contraindication FINAL DX: PRINCIPAL: Z53.09 Procedure and treatment not carried out because of other contraindication SECONDARY: PROCEDURES DOCTOR NAME DATE NOTE: The code number assigned matches the documented diagnosis and / or procedure in the patient's chart. However, the narrative phrase printed from the coding software may appear abbreviated, or result in slightly different terminology. Coded By: Chuyita Zapata Date Saved: 01/28/2018 07:28 am [facility] Coding Summaryon 01-26-2018 Coding Summary CODING DATE: 018 [facility] STATUS: Home PAYOR: Commercial Insurance ADMIT DX: REASON FOR VISIT DX: Z01.812 Encounter for preprocedural laboratory examination FINAL DX: PRINCIPAL: Z01.812 Encounter for preprocedural laboratory examination SECONDARY: N90.9 Noninflammatory disorder of vulva and perineum, unspecified PROCEDURES DOCTOR NAME DATE NOTE: The code number assigned matches the documented diagnosis and / or procedure in the patient's chart. However, the narrative phrase printed from the coding software may appear abbreviated, or result in slightly different terminology. Coded By: Nikkie Mcclain Date Saved: 01/26/2018 05:30 am [facility] MAGR Preoperative Recordon 0 01-26-2018 MAGR Preoperative Record MAGR Pre-Op Record Summary Primary Physician: Dudley Zhu DO Finalized Date/Time: 01/26/18 08:04:14 Pt. Name: MEGAN VASQUEZ/Sex: 1990 FEMALE Med Rec #: [id number] Physician: Dudley Zhu DO Financial #: [id number] Pt. Type: D Room/Bed: / Admit/Disch: 01/26/18 05:46:59 - Institution: Pre-Op Case Times MAGR Pre-Care Text: Patient will be optimally prepared for surgery. Patient is free from s/s of injury. Provide information to patient/family related to plan of care. Verify patient allergies. Confirm identity and verify consent before the operative or invasive procedure. Entry 1 Patient Arrival Time 01/26/18 06:44:00 Preop Departure 01/26/18 08:00:00 Last Modified By: Emely Taylor RN 01/26/18 08:04:10 Post-Care Text: Patient is prepared mentally and physically and is ready for surgery. The patient remains free from s/s of injury. Patient/family express understanding of plan of care and participate in decisions affecting his or her perioperrative plan of care. Allergies documented appropriately. Patient identifiers and consent correct. General Comments: Pt arrives to w ambulatory. Pt denies pain, cp, sob, cough or flu like symptoms. Pt denies pacemaker/defibillator or sleep apnea. Finalized By: Emely Taylor RN Document Signatures Signed By: Emely Taylor RN 01/26/18 08:04 [facility] Test Urine 1on U Preg Negative [facility] Comment on above: Performed By: #### 3 [id number] ####[facility] (DEFAULT)[address] [place] [address] U Preg Internal Control Pass [facility] Comment on above: Performed By: #### 3 [id number] ####[facility] (DEFAULT)[address] [place] [address] Progress Note - Nurseon 12-29 aPTT Pre-op call done, instructed pt to arrive @ 0630 on 01-26-18, NPO after midnight and need for ride to and from hospital-verbalized understanding. Pt states Dr. Zhu put her on a BP med, instructed to take in AM day of OR with small sip of H2O, pt verbalized understanding.[Electronical ly Signed on: 01/25/2018 12:58 EDT] Jyoti Crabtree RN[Verified on: 01/25/2018 12:58 EDT] Jyoti Crabtree RN [facility] Progress Note - Nurseon 12-28 Progress Note - Nurse PAT review done per Dr. Manriquez, no orders received. [Electronically Signed on: 01/20/2018 14:11 EDT] Jyoti Crabtree RN [Verified on: 01/20/2018 14:11 EDT] Jyoti Crabtree RN Normal [facility] .Auto Diff 1on 01-19-2018 Auto Baso % 0.4 % Normal 0.2-2.0 [facility] Comment on above: Performed By: #### 7 [id number], [id number] ####[facility] (DEFAULT)[address] [place] [address] Auto [place] % 5 % Normal 1-12 [facility] Comment on above: Performed By: #### 7 [id number], [id number] ####[facility] (DEFAULT)[address] [place] [address] Auto Neut % 64 % Normal 44-88 [facility] Comment on above: Performed By: #### 7 [id number], [id number] ####[facility] (DEFAULT)[address] [place] [address] Baso Abs# 0.0 x10 Normal 0.0-0.2 [facility] Comment on above: Performed By: #### 7 [id number], [id number] ####[facility] (DEFAULT)[address] [place] [address] Eos Abs# 0.2 x10 Normal 0.0-0.4 [facility] Comment on above: Performed By: #### 7 [id number], [id number] ####[facility] (DEFAULT)[address] [place] [address]777 Eosinophils/100 leukocytes 1.8 % Normal 0.9-4.0 [facility] Comment on above: Performed By: #### 7 [id number], [id number] ####[facility] (DEFAULT)[address] [place] [address] 61444 Lymphocytes 2.7 x10 Normal 1.3-2.9 [facility] Comment on above: Performed By: #### 7 [id number], [id number] ####[facility] (DEFAULT)[address] [place] [address] 98332 Lymphocytes/100 leukocytes 29 % Normal 14-48 [facility] Comment on above: Performed By: #### 7 [id number], [id number] ####[facility] (DEFAULT)[address] [place] [address]117 [place] Abs# 0.4 x10 Normal 0.0-0.8 [facility] Comment on above: Performed By: #### 7 [id number], [id number] ####[facility] (DEFAULT)[address] [place] [address] 50775 Neut Abs# 5.8 x10 Normal 1.5-9.2 [facility] Comment on above: Performed By: #### 7 [id number], [id number] ####[facility] (DEFAULT)[address] [place] [address] 95480 CBC w/ Auto Diffon 8 Erythrocyte distribution width Auto Ratio (RBC) 13.0 % Normal 11.5-15.0 [facility] Comment on above: Performed By: #### 7 [id number], [id number] ####[facility] (DEFAULT)[address] [place] [address] Erythrocytes (RBC) 4.93 x10 Normal 3.70-5.30 [facility] Comment on above: Performed By: #### 7 [id number], [id number] ####[facility] (DEFAULT)[address] [place] [address] Hematocrit (HCT) 42.2 % High 33.7-40.4 [facility] Comment on above: Performed By: #### 7 [id number], [id number] ####[facility] (DEFAULT)[address] [place] [address] Hemoglobin mass conc (Bld) 14.3 g/dL Normal 11.3-15.9 [facility] Comment on above: Performed By: #### 7 [id number], [id number] ####[facility] (DEFAULT)[address] [place] [address] Man Diff? Auto Normal [facility] Comment on above: Performed By: #### 7 [id number], [id number] ####[facility] (DEFAULT)[address] [place] [address] 25736 MCH 29 pg Normal 24-34 [facility] Comment on above: Performed By: #### 7 [id number], [id number] ####[facility] (DEFAULT)[address] [place] [address] 40796 MCHC mass conc (RBC) 34 g/dL Normal 26-37 [facility] Comment on above: Performed By: #### 7 [id number], [id number] ####[facility] (DEFAULT)[address] [place] [address] 10676 MCV 86 fL Normal 81-100 [facility] Comment on above: Performed By: #### 7 [id number], [id number] ####[facility] (DEFAULT)[address] [place] [address] 17613 Platelet mean volume (PMV) 9.1 fL Normal 6.3-10.2 [facility] Comment on above: Performed By: #### 7 [id number], [id number] ####[facility] (DEFAULT)[address] [place] [address] 14616 Platelets 427 x10 Normal 138-427 [facility] Comment on above: Performed By: #### 7 [id number], [id number] ####[facility] (DEFAULT)[address] [place] [address] 83839 WBC (Leukocytes) 9.1 x10 Normal 3.5-10.5 [facility] Comment on above: Performed By: #### 7 [id number], [id number] ####[facility] (DEFAULT)[address] [place] [address] 74761 Progress Note - Nurseon - Progress Note - Nurse Dr. Gomez's office notified of elevated b/p 157/101 on left and 153/105 on right ....after 20 minutes of sitting b/p recheck 145/100 left and 163/102 right. Press Worker Helper states she will notify Dr. Zhu's office regarding this and will notify Dr. Gomez when he returns to office at 1415 today.[Electronically Signed on: 01/19/2018 13:50 EDT] Caro Cyr RN[Verified on: 01/19/2018 13:50 EDT] Caro Cyr RNAt [address] nurse telephoned Dr. Zhu's office regarding elevated B/P info.[Electronically Signed on: 01/19/2018 13:59 EDT] Caro Cyr RN [facility] Vital Signs Date Time Vital Sign Value Performing Clinician Facility 06-01-2024 16:24-0400 Body weight 90.72 kg Aung Mao DO Work Phone: [facility] 06-01-2024 16:24-0400 Diastolic blood pressure 84 mm[Hg] MyWants DO Work Phone: [facility] 06-01-2024 16:24-0400 Systolic blood pressure 122 mm[Hg] Aung Mao DO Work Phone: [facility] 06-12-2022 10:55-0400 Body height 168.91 cm Nydia Perez Other [facility] Other 06-12-2022 10:55-0400 Body mass index (BMI) [Ratio] 27.02 kg/m2 Nydia Perez Other [facility] Other 06-12-2022 10:55-0400 Body temperature 98.9 [degF] Nydia Perez Other [facility] Other 06-12-2022 10:55-0400 Body weight 77.11 kg Nydia Perez Other [facility] Other 06-12-2022 10:55-0400 Respiratory rate 18 /min Nydia Perez Other [facility] Other 06-12-2022 10:55-0400 SaO2% (BldA) [Mass fraction] 99 % Nydia Perez Other [facility] Other 02-20-2022 17:50-0400 Body height 168.91 cm Erica Ramírez Other [facility] Other 02-20-2022 17:50-0400 Body mass index (BMI) [Ratio] 26.23 kg/m2 Erica Ramírez Other [facility] Other 02-20-2022 17:50-0400 Body temperature 98.7 [degF] Erica Ramírez Other [facility] Other 02-20-2022 17:50-0400 Body weight 74.84 kg Erica Ramírez Other [facility] Other 02-20-2022 17:50-0400 Respiratory rate 18 /min Erica Ramírez Other [facility] Other 02-20-2022 17:50-0400 SaO2% (BldA) [Mass fraction] 99 % Erica Ramírez Other [facility] Other Encounters Encounter Date Encounter Type Care Provider Facility Start: 06-12-2025 End: 06-12-2025 Bamboo flowsheet Aung Mao DO Work Phone: [facility] Start: 06-12-2025 End: 06-12-2025 Bamboo flowsheet Aung Mao DO Work Phone: [facility] Start: 06-01-2024 End: 06-01-2024 Patient encounter procedure Aung Mao DO Work Phone: [facility] Start: 06-01-2024 End: 06-01-2024 Periodic preventive med est patient 18-39 yrs Aung Mao DO Work Phone: [facility] Comment on above: Well woman exam with routine gynecological exam; control counseling Start: 06-01-2024 End: 06-01-2024 ambulatory AUNG MAO Not Available Start: 06-01-2024 End: 06-01-2024 Bamboo flowsheet Aung Mao DO Work Phone: [facility] Start: 06-01-2024 End: 06-06-2024 Clinisync Result Encounter Aung Mao DO Work Phone: [facility] Unsolicited Start: 06-01-2024 End: 06-06-2024 Clinisync Result Encounter Aung Mao DO Work Phone: [facility] Unsolicited Start: 06-12-2022 End: 06-12-2022 ambulatory Nydia Perez Other [facility] Other Start: 06-12-2022 Office outpatient vi sit 25 minutes Nydia Perez [facility] Start: 05-13-2022 End: 05-13-[address] CARL MARSHALL Facility: Start: 02-20-2022 End: 02-20-2022 ambulatory Erica Ramírez Other [facility] Other Start: 02-20-2022 Office outpatient vi sit 25 minutes Erica Ramírez [facility] Start: 03-16-2018 End: 03-17-2018 Patient encounter DUDLEY ZHU Facility:[facility] Start: 01-26-2018 End: 01-29-2018 Patient encounter DUDLEY ZHU Facility:[facility] Start: 01-20-2018 End: 01-23-2018 Patient encounter DUDLEY ZHU Facility:[facility] Procedures Date Procedure Procedure Detail Performing Clinician Start: 06-01-2024 IGP,APTIMA HPV,AGE GDLN Aung Mao DO Work Phone: Start: 06-01-2024 Microscopic observat ion [Identifier] in Cervix by Cyto stain Aung Cavanaugh DO Work Phone: Plan of Treatment Date Care Activity Detail Author Start: 06-05-2028 Screening for malign ant neoplasm of cervix [facility] Start: 06-01-2027 Screening for malign ant neoplasm of cervix Pap Smear [facility] Start: 06-12-2025 End: 06-12-2025 Patient encounter procedure 06/12/2025 4:00 PM EDT Office Visit [facility] [address] [place] [id number] Aung Cavanaugh, [address] [place] [address] [facility] Start: 05-29-2025 Influenza vaccination Influenza Vacc ine (#1) [facility] Start: 06-01-2024 End: 06-01-2024 Patient encounter procedure 06/01/2024 3:50 PM EDT Office [address] [facility] [address] [place] [id number] Aung Cavanaugh, DO [address] [place] [address] [facility] Comment on above: Arrived Start: 05-29-2024 Influenza vaccination Influenza Vacc ine (#1) [facility] Start: 2009 Screening for malign ant neoplasm of cervix Pap Smear [facility] Cytology Cervical or vaginal smear or scraping study Pap Smear Pathology and Cytology Routine Well woman exam with routine gynecological exam Ordered: 06/01/2024 [facility] Work Phone: Comment on above: Ordered: 06/01/2024 Human papilloma viru s DNA [Presence] in Unspecified specimen by Probe with amplification HPV DNA probe, amplified Microbiology Routine Well woman exam with routine gynecological exam Ordered: 06/01/2024 [facility] Comment on above: Ordered: 06/01/2024 Immunizations Immunization Date Immunization Notes Care Provider Fa cili 07-04-2022 influenza virus vacc ine, unspecified formulation Aung Cavanaugh DO Work Phone: [facility] Payers Date Payer Category Payer Private Health Insurance [employer] [id number] 2023 Unknown [employer] [id number] 2023-Present [address] [place] [address] [id number] 2017 Unknown [id number] 1988 Unknown [id number] 1988 Unknown [id number] 1959 Unknown [id number] Social History Date Type Detail Facility Start: 06-01-2024 Sex Assigned At N [facility] Other Start: 06-01-2024 Tobacco smoking status NCIS Never smoked tobacco [facility] Start: 06-01-2024 Tobacco use and exposure Smokeless tobacco non-user [facility] Start: 06-01-2024 Alcoholic beverage intake Ex-drinker (finding) [facility] Start: 06-01-2024 Alcoholic beverage intake [facility] Start: 1990 Sex assigned at Not on file [facility] Tobacco smoking status NCIS Tobacco smoking consumption unknown [facility] History of Present illness Narrative 06-01-2024 Vivien Naqvi, [employer] - 06/01/2024 3:50 PM EDT Note Date & Type Note Facility 06-01-2024 History of Presen t illness Narrative Reason for Appointment: Patient ID: Megan Vasquez is a 34 y.o. female who presents for Well Women Visit Patient presents today for Annual Exam. MEDICATIONS Current Outpatient Medications Medication Instructions Tri-Estarylla 0.18/0.215/0.25 MG-35 MCG tablet 1 tablet, Oral, Every morning ALLERGIES No Known Allergies PROBLEMS Active Ambulatory Problems Diagnosis Date Noted No Active Ambulatory Problems Resolved Ambulatory Problems Diagnosis Date Noted No Resolved Ambulatory Problems Past Medical History: Diagnosis Date Hypertension (CMS/HCC) HISTORY PAST MEDICAL HISTORY SOCIAL HISTORY Past Medical History: Diagnosis Date Hypertension (CMS/HCC) Social History Tobacco Use Smoking status: Never Smokeless tobacco: Never Substance Use Topics Alcohol use: Not Currently Alcohol/week: 1.0 standard drink of alcohol Types: 1 Glasses of wine per week Drug use: Never FAMILY HISTORY No family history on file. SURGICAL HISTORY Past Surgical History: Procedure Laterality Date SECTION, LOW TRANSVERSE 06/06/2013 REVIEW OF SYSTEMS Review of Systems: Review of Systems Constitutional: Negative. HENT: Negative. Eyes: Negative. Respiratory: Negative. Cardiovascular: Negative. Gastrointestinal: Negative. Genitourinary: Negative. Musculoskeletal: Negative. Skin: Negative. Neurological: Negative. All other systems reviewed and are negative. Hematological: Negative. Endocrine: Negative. Allergic/Immunologic: Negative. OBJECTIVE Objective: Physical Exam Constitutional: Appearance: Normal appearance. She is well-developed. Genitourinary: Vulva normal. Breasts: Breasts are soft. Right: Normal. Left: Normal. Cardiovascular: Rate and Rhythm: Normal rate and regular rhythm. Pulmonary: Effort: Pulmonary effort is normal. Breath sounds: Normal breath sounds. Abdominal: General: Bowel sounds are normal. There is no distension. Palpations: Abdomen is soft. Tenderness: There is no abdominal tenderness. There is no guarding or rebound. Musculoskeletal: General: No swelling. Normal range of motion. Right lower leg: No edema. Left lower leg: No edema. Neurological: Mental Status: She is alert and oriented to person, place, and time. Skin: General: Skin is warm and dry. Psychiatric: Mood and Affect: Mood normal. Behavior: Behavior normal. Vitals and nursing note reviewed. Exam conducted with a complex care nurse present. Vitals: There is no height or weight on file to calculate BMI. BP: 122/84 Patient's last menstrual period was 05/11/2024. ASSESSMENT & PLAN ICD-10-CM 1. Well woman exam with routine gynecological exam Z01.419 Pap Smear HPV DNA probe, amplified Annual Exam: Patient presents today for an annual exam. Patient states she is doing well and has no complaints. Pap was obtained without difficulty. Orders Placed This Encounter Procedures HPV DNA probe, amplified Follow Up: Patient is to return in one year for annual unless needed otherwise. Documented by Vivien Naqvi LPN on behalf of: Aung Cavanaugh DO documented in this encounter [facility] Evaluation note 06-12-2022 Note Date & Type Note Facility 06-12-2022 Evaluation note Encounter Date Diagnosis Assessment Notes May, Contact with and (suspected) exposure to other viral communicable diseases (ICD-10 - Z20.828) May, Viral URI with cough (ICD-10 - J06.9) Advised patient that COVID PCR test was negative today. Advised patient that if symptoms continue/worsen, encouraged use of at home COVID test. Advised patient that will treat as viral URI. Supportive care as directed, increase fluids and rest, Tylenol/Motrin as directed, OTC cough/cold remedies as directed on packaging, cool mist humidifier, throat lozenges. Discussed infection control practices such as good hand washing and mask wearing. Patient to follow up with PCP if symptoms persist or worsen despite treatment. Immediate eval for SOB, difficulty, chest pain, fevers that do not break with antipyretic or any other concerning symptoms as reviewed on patient education handout. Patient verbalizes understanding and is agreeable to treatment plan. Patient left in stable condition [facility] Other Evaluation note 02-20-2022 Note Date & Type Note Facility 02-20-2022 Evaluation note Encounter Date Diagnosis Assessment Notes January, Sore throat (ICD-10 - J02.9) January, Left acute otitis media (ICD-10 - H66.92) Ear infections are often a secondary infection caused from an URI, the flu or allergies. Take medication as directed. Complete all doses, even if you feel better. Tylenol or ibuprofen can help with pain. Warm pack to area for comfort helps as well. Follow up with primary care provider if no improvement of symptoms. [facility] Other Evaluation note Note Date & Type Note Facility Evaluation note Diagnosis Well woman exam with routine gynecological exam Routine gynecological examination control counseling documented in this encounter [facility] History general Narrative - Reported Note Date & Type Note Facility History general Narrative - Reported Type Medical History HTN Surgical History C section Hospitalization History see above surg hx [facility] Other Summary Purpose Family History No Family History Records FoundNo Family History Records FoundNo Family History Records Found Advance Directives No Advanced Directives Records FoundNo Advanced Directives Records FoundNo Advanced Directives Records Found Additional Source Comments INFORMATION SOURCE (unrecogn ized section and content) DATE CREATED AUTHOR 04/18/2018 [facility] l DATE CREATED AUTHOR AUTHOR'S ORGANIZ ATION 07/21/2022 [facility] DATE CREATED AUTHOR AUTHOR'S ORGANIZ ATION 06/03/2024 [facility] EPIC REASON FOR VISIT (unrecogniz ed section and content) Reason Comments Well Women Visit Care Teams (unrecognized sec tion and content) Division Merchandise Manager Relationship Specialty Start Date End Date Phoenix Gomez MD [address] [place] [address], [address] [place] [address] PCP - General 05/12/23 Division Merchandise Manager Relationship Specialty Start Date End Date Phoenix Gomez MD [address] [place] [address], [address] [place] [address] PCP - General 05/12/23 Division Merchandise Manager Relationship Specialty Start Date End Date Phoenix Gomez MD PCP - General 05/12/23 FOR RECORDS PERTAINING TO PATIENTS WHO ARE OR HAVE BEEN ENROLLED IN A CHEMICAL DEPENDENCY/SUBSTANCEABUSE PROGRAM, SOME INFORMATION MAY BE OMITTED. This clinical summary was aggregated from multiple sources. Caution should be exercised in using it in the provision of clinical care. This summary normalizes information from multiple sources, and as a consequence, information in this document may materially change the coding, format and clinical context of patient data. In addition, data may be omitted in some cases. CLINICAL DECISIONS SHOULD BE BASED ON THE PRIMARY CLINICAL RECORDS. [facility] [employer] [facility]. provides no warranty or guarantee of the accuracy or completeness of information in this document.
[2025-06-20 13:09] LABS: Age Gdln ACOG Testing Note (.); IGP, Aptima HPV, rfx 16/18,45 Note (.)
== END 2025-06-12 20:16 | disposition home or self-care (01) ==
LOC: LAB 20:15
PROVIDERS: PCP Internal Medicine; Visit Provider Obstetrics & Gynecology
DX: Z01.419 Encounter for gynecological examination (general) (routine) without abnormal findings (principal)
CPT/HCPCS: 88175